=== PATIENT | male | born 1970 | race Caucasian/White ===

== ENCOUNTER 2017-04-20 21:03 | Emergency (ER) | payer MEDICARE, OTHER ==
[~2017-04-20] VITALS: Ht 170.2 cm; Wt 100.0 kg
[2017-04-20] MEDS ORDERED: NS 1,000 ML IV ONE (21:15)
[2017-04-20] MEDS ORDERED: IPRATROPIUM 0.02% SOLN 0.5MG/2.5 ML NEB INH ONE (21:15)
[2017-04-20] MEDS ORDERED: FUROSEMIDE 40 MG/4 ML VIAL (J1940) IV ONE (21:15)
[2017-04-20] MEDS ORDERED: methylPREDNISolone INJ 125 MG/2 ML VIAL (J2930) IV ONE (21:15)
[2017-04-20] MEDS ORDERED: ASPIRIN 81 MG CHEW TABLET PO ONE (21:15)
[2017-04-20] MEDS ORDERED: ADDE20CA3 PO (21:43)
[2017-04-20] MEDS ORDERED: PERC10TA26 PO (21:43)
[2017-04-20] MEDS ORDERED: LASI40TA PO (21:43)
[2017-04-20] MEDS ORDERED: IPRASOL4 IN (21:43)
[2017-04-20] MEDS ORDERED: THEO1CAP5 PO (21:43)
[2017-04-20] MEDS ORDERED: LIDO1PAD EX (21:43)
[2017-04-20] MEDS ORDERED: PRAV40TA2 PO (21:43)
[2017-04-20] MEDS ORDERED: ANOR1AER IN (21:43)
[2017-04-20] MEDS ORDERED: CITA20TA4 PO (21:43)
[2017-04-20] MEDS ORDERED: ALPR2TAB3 PO (21:43)
[2017-04-20] MEDS ORDERED: FLUT22IN INH (21:43)
[2017-04-20] MEDS ORDERED: CYCL10TA PO (21:43)
[2017-04-20] MEDS ORDERED: GABA-283 PO (21:43)
[2017-04-20] MEDS ORDERED: AMIT24CA7 PO (21:43)
[2017-04-20] MEDS ORDERED: NYST50SS SS (21:43)
[2017-04-20] MEDS ORDERED: MORP1TAB21 PO (21:43)
[2017-04-20] MEDS ORDERED: OMEP40CA2 PO (21:43)
[2017-04-20] MEDS ORDERED: SING10TA32 PO (21:43)
[2017-04-20] MEDS ORDERED: ASPI81TA24 PO (21:43)
[2017-04-20] MEDS ORDERED: TEST1INJ3 IM (21:43)
[2017-04-20 22:09] LABS: BASO % 0.5 % (0.0-1.0); EOS # 0.1 10^3/uL (0.0-0.50); EOS % 1.3 % (0.0-3.0); IMMATURE GRANULOCYTE % 0.5 % (0-0); LYMPH # 1.9 10^3/uL (1.5-4.5); LYMPH % 21.6 % (24.0-44.0); MEAN CORPUSCULAR HEMOGLOBIN 24.8 pg (27.0-33.0); MEAN CORPUSCULAR HGB CONC 30.8 g/dl (32.0-36.5); MEAN CORPUSCULAR VOLUME 80.6 fl (80.0-96.0); MONO # 0.7 10^3/uL (0.0-0.8); MONO % 7.7 % (0.0-5.0); NEUTROPHILS % 68.4 % (36.0-66.0); PLATELET COUNT, AUTOMATED 228 10^3/uL (150-450); RED CELL DISTRIBUTION WIDTH 15.5 % (11.5-14.5); WHITE BLOOD COUNT 8.7 10^3/uL (4.0-10.0)
[2017-04-20 22:12] LABS: ANION GAP 8 MEQ/L (8-16); BLOOD UREA NITROGEN 16 MG/DL (7-18); CALCIUM LEVEL 8.5 MG/DL (8.5-10.1); CARBON DIOXIDE LEVEL 31 MEQ/L (21-32); CHLORIDE LEVEL 103 MEQ/L (98-107); GLOMERULAR FILTRATION RATE > 60.0 (>60); GLUCOSE, FASTING 96 MG/DL (70-105); SODIUM LEVEL 142 MEQ/L (136-145)
[2017-04-20 22:15] LABS: ALBUMIN 4.1 GM/DL (3.2-5.2); ALBUMIN/GLOBULIN RATIO 1.24 (1.00-1.93); ALKALINE PHOSPHATASE 125 U/L (45-117); ALT/SGPT 26 U/L (12-78); AST/SGOT 20 U/L (7-37); BILIRUBIN,DIRECT 0.2 MG/DL (0.0-0.2); BILIRUBIN,TOTAL 0.5 MG/DL (0.2-1.0); TOTAL PROTEIN 7.4 GM/DL (6.4-8.2)
[2017-04-20 22:21] LABS: INR 0.92
[2017-04-20 22:32] LABS: ABG BASE EXCESS 0.2 (-2.0-2.0); ABG HCO3 27.5 MEQ/L (22.0-26.0); ABG PARTIAL PRESSURE CO2 55.9 mmHg (35.0-45.0); ABG PARTIAL PRESSURE O2 78.8 mmHg (75.0-100.0); ABG STANDARD HCO3 24.6 MEQ/L (22.0-26.0); ABG TOTAL CO2 29.2 MEQ/L (22.0-29.0)
[2017-04-20 22:38] LABS: METHADONE URINE NEGATIVE (NEGATIVE)
[2017-04-20 22:54] VITALS: BP 150/80
--- NOTE | 2017-04-21 08:09 | REP ---
Clinical: cough and dyspnea. Comparison: none. Technique: PA and lateral. Findings: The mediastinum demonstrate prior sternotomy. The cardiac silhouette is mildly enlarged and pacemaker is in satisfactory position. The lung leslie are clear and without acute consolidation, effusion, or pneumothorax. The skeletal structures are intact and normal. Impression: 1. No acute cardiopulmonary process. Mild cardiomegaly. Signed by Jese Rogel MD 04/21/2017 08:00 A
--- NOTE | 2017-04-21 19:30 | ECGEPIP ---
Stationary ECG Study [facility] - ED Test Date: 2017-04-20 Pat Name: RICK BENOIT Department: Room: - Gender: M [employer]: annika : 1970 Requested By: RONAL HERNANDEZ Order Number: [id number] Reading MD: Aaron Mishra Measurements Intervals [place] Rate: 71 P: 31 MO: 246 QRS: 33 QRSD: 193 T: 229 QT: 476 QTc: 518 Interpretive Statements SINUS RHYTHM WITH FIRST DEGREE AV BLOCK POSSIBLE LEFT ATRIAL ENLARGEMENT LEFT BUNDLE BRANCH BLOCK NO OLD ECG FOR COMPARISON Electronically Signed On 04-21-2017 19:29:44 EST by Aaron Mishra
== END 2017-04-20 23:06 | disposition home or self-care (01) ==
LOC: M ED 21:03
DX: J45.901 Unspecified asthma with (acute) exacerbation (principal); I10 Essential (primary) hypertension; Z95.1 Presence of aortocoronary bypass graft; Z79.899 Other long term (current) drug therapy
CPT/HCPCS: 36600; 71020; 80048; 80076; 80307; 82140; 82803; 85025; 85610; 93005; 93041; 94640; 94760; 99285; G0480; J1940; J2930